=== PATIENT | male | born 1995 | race Caucasian/White ===

== ENCOUNTER 2017-11-16 02:00 | Emergency (ER) | payer MEDICAID, OTHER ==
[~2017-11-16] VITALS: Ht 180.3 cm; Wt 66.0 kg
[~2017-11-16 02:00] MED LIST: ACET325T14 PO; ASPI-496 PO; No meds per pt.
[2017-11-16 06:17] VITALS: BP 99/68
== END 2017-11-16 06:45 | disposition home or self-care (01) ==
LOC: ED 06:30
DX: F10.120 Alcohol abuse with intoxication, uncomplicated (principal)
CPT/HCPCS: 99283

== ENCOUNTER 2018-10-03 07:10 | Outpatient (CLI) | payer BC, OTHER | END 2018-10-03 23:59 | disposition home or self-care (01) | LOC: CFH 07:10 | PROVIDERS: ATTEND Family Medicine | DX: R51 Headache (principal); R05 Cough; M41.84 Other forms of scoliosis, thoracic region | CPT/HCPCS: 70553; 71046; A9585 ==

== ENCOUNTER 2018-10-11 10:35 | Emergency (ER) | payer OTHER ==
[~2018-10-11] VITALS: Ht 175.3 cm; Wt 69.9 kg
[2018-10-11 11:11] VITALS: BP 120/65
== END 2018-10-11 13:48 | disposition home or self-care (01) ==
LOC: ED 12:45
DX: K52.9 Noninfective gastroenteritis and colitis, unspecified (principal)
CPT/HCPCS: 36415; 74177; 80053; 81003; 83605; 83690; 85025; 96374; 96375; 99284; J1170; J2405; Q9967